=== PATIENT | female | born 1945 | race Caucasian/White ===

== ENCOUNTER 2017-02-05 08:46 | Outpatient (CLI) | payer OTHER | END 2017-02-05 08:47 | disposition home or self-care (01) | DX: E11.9 Type 2 diabetes mellitus without complications (principal); E55.9 Vitamin D deficiency, unspecified; Z79.899 Other long term (current) drug therapy ==

== ENCOUNTER 2018-02-28 08:41 | Outpatient (CLI) | payer OTHER ==
[2018-02-28 09:06] LABS: BASOPHILS # (AUTO) 0.1 10^3/uL (0.0-0.1); BASOPHILS % (AUTO) 1.1 %; EOSINOPHILS # (AUTO) 0.3 10^3/uL (0.0-0.7); HGB - HEMOGLOBIN 12.4 g/dL (12.0-16.0); LYMPHOCYTES # (AUTO) 2.2 10^3/uL (1.5-3.5); LYMPHOCYTES % (AUTO) 30.2 %; MEAN CORPUSCULAR HEMOGLOBIN 32.6 pg (27.0-31.0); MEAN CORPUSCULAR HGB CONC 33.9 g/dL (32.0-36.0); MEAN CORPUSCULAR VOLUME 96.1 fL (81.0-99.0); MEAN PLATELET VOLUME 8.2 fL (7.9-10.8); MONOCYTES # (AUTO) 0.4 10^3/uL (0.0-1.0); NEUTROPHILS # (AUTO) 4.3 10^3/uL (1.5-6.6); NEUTROPHILS % (AUTO) 58.7 %; PLT - PLATELET COUNT 295 10^3/uL (130-450); RED CELL DISTRIBUTION WIDTH 13.2 % (12.0-15.0); WHITE BLOOD COUNT 7.3 x10^3/uL (4.8-10.8)
[2018-02-28 09:23] LABS: ALBUMIN 4.2 g/dL (3.2-5.5); ALBUMIN/GLOBULIN RATIO 1.4 (1.0-2.2); ALKALINE PHOSPHATASE 78 IU/L (42-121); ALT ALANINE AMINOTRANSFERASE 103 IU/L (10-60); AST ASPARTATE AMINOTRANSFERASE 64 IU/L (10-42); BILIRUBIN,TOTAL 0.6 mg/dL (0.2-1.0); BUN - BLOOD UREA NITROGEN 19 mg/dL (6-20); CALCIUM 9.3 mg/dL (8.5-10.3); CARBON DIOXIDE - CO2 26 mmol/L (21-32); CHLORIDE 103 mmol/L (101-111); CHOL/HDL RATIO 3.4 (<4.4); CHOLESTEROL 223 mg/dL; GFR - MDRD 55 (>89); GLUCOSE 212 mg/dL (70-100); HDL CHOLESTEROL 66 mg/dL; LDL CHOLESTEROL,CALCULATED 141 mg/dL; LDL/HDL RATIO 2.1 (<4.4); SODIUM 137 mmol/L (135-145); TOTAL PROTEIN 7.1 g/dL (6.7-8.2); VLDL CHOLESTEROL 16 mg/dL
[2018-02-28 09:32] LABS: HB2 TOTAL 13.4 g/dL; HEMOGLOBIN A1C 0.98 g/dL; HEMOGLOBIN A1C % 8.8 % (4.6-6.2)
[2018-03-01 14:12] LABS: HEPATITIS C ANTIBODY NON-REACTIVE (NON-REACTIVE)
== END 2018-02-28 08:42 | disposition home or self-care (01) ==
LOC: LAB 08:41
PROVIDERS: ATTEND Physician Assistant Medical
DX: E55.9 Vitamin D deficiency, unspecified (principal); E11.9 Type 2 diabetes mellitus without complications; E78.5 Hyperlipidemia, unspecified; M85.80 Other specified disorders of bone density and structure, unspecified site; Z11.59 Encounter for screening for other viral diseases; Z72.89 Other problems related to lifestyle; Z79.899 Other long term (current) drug therapy
CPT/HCPCS: 36415; 80053; 80061; 82306; 83036; 83721; 84443; 85025; 86803

== ENCOUNTER 2018-08-07 10:32 | Outpatient (CLI) | payer OTHER ==
[2018-08-07 11:15] LABS: ALBUMIN 4.2 g/dL (3.2-5.5); BILIRUBIN,DIRECT 0.1 mg/dL (0.1-0.5); BILIRUBIN,TOTAL 0.8 mg/dL (0.2-1.0); TOTAL PROTEIN 7.3 g/dL (6.7-8.2)
[2018-08-07] MEDS ORDERED: IOPAMIDOL-300 100 ML VIAL ONE (11:25)
[2018-08-07 11:38] LABS: HB2 TOTAL 14.1 g/dL; HEMOGLOBIN A1C 1.14 g/dL; HEMOGLOBIN A1C % 9.5 % (4.6-6.2)
[2018-08-07] MEDS ORDERED: IOPAMIDOL-300 100 ML VIAL IVP ONE (12:54)
--- NOTE | 2018-08-07 16:44 | CT Report ---
Reason: ASCENDING AORTIC ANEURYSM. Procedure Date: 08/07/2018 Accession Number: [id number] / [id number] Procedure: CT - Chest Angio (AORTA) CPT Code: FULL RESULT: EXAM: CT ANGIOGRAM CHEST, ABDOMEN AND PELVIS EXAM DATE: 08/07/2018 12:51 PM. CLINICAL HISTORY: Ascending aortic aneurysm. COMPARISONS: Chest angiogram (aorta) 07/27/2016 10:12 AM. TECHNIQUE: Routine axial helical CT angiographic imaging was performed through the chest, abdomen, and pelvis. IV Contrast: CE. Reconstructions: Coronal, sagittal, and 3D MIP reconstructions of the aorta. In accordance with CT protocol optimization, one or more of the following dose reduction techniques were utilized for this exam: automated exposure control, adjustment of mA and/or KV based on patient size, or use of iterative reconstructive technique. FINDINGS: Vascular Structures: The previously identified ascending aortic aneurysm above the sinuses of Valsalva is stable at up to 4.1 cm. No dissection, or significant atherosclerotic disease of the thoracic aorta, abdominal aorta, or iliac arteries. The visualized pulmonary, mesenteric, and solid organ vascular structures are also within normal limits. Lungs/Pleura: Dependent changes are seen posteriorly in the right lung. No lobar consolidation, nodules, or edema. No effusions or pneumothorax. Mediastinum: Impression of mild four-chamber cardiomegaly, evaluation limited by non-gated technique. This is unchanged compared to 2016. Bones: No aggressive osseous lesions. Other: None. IMPRESSION: Stable ascending aortic aneurysm. RADIA
== END 2018-08-07 10:33 | disposition home or self-care (01) ==
LOC: DI 10:32
PROVIDERS: ATTEND Physician Assistant Medical
DX: I71.2 Thoracic aortic aneurysm, without rupture (principal); E11.9 Type 2 diabetes mellitus without complications; R94.5 Abnormal results of liver function studies
CPT/HCPCS: 36415; 71275; 80076; 82565; 82947; 83036; 93306; Q9967

== ENCOUNTER 2018-09-18 11:59 | Outpatient (CLI) | payer OTHER ==
--- NOTE | 2018-09-18 14:55 | XRAY Report ---
Reason: JAW PAIN,TMJ TENDERNESS,LEFT Procedure Date: 09/18/2018 Accession Number: [id number] / [id number] Procedure: XR - Mandible Bilat CPT Code: FULL RESULT: EXAM: MANDIBLE RADIOGRAPHY EXAM DATE: 09/18/2018 12:33 PM. HISTORY: Jaw pain, TMJ tenderness, left. COMPARISONS: None. TECHNIQUE: 4 views. FINDINGS: Bones: No fracture or lytic lesion of the mandible is detected. Temporomandibular Joints: Normal. The temporomandibular joints are normally located and symmetric. Sinuses: Normal. No opacities or fluid levels. Other: Normal. No soft tissue swelling. IMPRESSION: Normal mandible radiography. RADIA
== END 2018-09-18 12:00 | disposition home or self-care (01) ==
LOC: DI 11:59
PROVIDERS: ATTEND Physician Assistant Medical
DX: R68.84 Jaw pain (principal); M26.69 Other specified disorders of temporomandibular joint
CPT/HCPCS: 70110

== ENCOUNTER 2018-10-23 14:35 | Outpatient (CLI) | payer OTHER ==
--- NOTE | 2018-10-24 12:04 | CARDIAC PROCEDURE NOTE ---
DATE OF SERVICE: 10/23/2018 Physician: Kelli Vázquez MD, [facility] INDICATION: Chest pain. CARDIAC RISK FACTORS 1. Postmenopausal status. 2. Hyperlipidemia. 3. Diabetes. 4. Hypertension. 5. Unknown if family had heart disease. SUMMARY: After signing informed consent, the patient underwent a Navjot protocol treadmill stress test with Echo imaging. Resting heart rate: 66. Peak heart rate: 129 (87% predicted maximal heart rate for age). Resting blood pressure: 140/60. Peak blood pressure: 178/62. The patient exercised for 6 minutes and 13 seconds on a Navjot protocol treadmill stress test. She achieved a peak heart rate of 129 (87% PMHR), 7.4 METS. The patient developed moderate shortness of breath at peak, she had no chest pain. RESTING EKG: Normal sinus rhythm, left atrial enlargement, early RS transition. Peak EK mm horizontal ST depression in leads II, III and aVF and upsloping ST depressions in V5 through V6. SUMMARY 1. Fair exercise tolerance. 2. Ischemic changes by EKG criteria on this Navjot protocol treadmill stress test. 3. Echo images reported separately. cc: Leta Hurt PA-C TD: 10/24/2018 11:48 MTDD
== END 2018-10-23 14:36 | disposition home or self-care (01) ==
LOC: DI 14:35
PROVIDERS: ATTEND Physician Assistant Medical
DX: R07.89 Other chest pain (principal); I10 Essential (primary) hypertension; E66.3 Overweight; I71.2 Thoracic aortic aneurysm, without rupture; E11.9 Type 2 diabetes mellitus without complications; I51.7 Cardiomegaly
CPT/HCPCS: 93351

== ENCOUNTER 2019-05-08 07:58 | Outpatient (CLI) | payer OTHER | END 2019-05-08 07:59 | disposition home or self-care (01) | LOC: DI 07:58 | PROVIDERS: ATTEND Nurse Practitioner | DX: I71.2 Thoracic aortic aneurysm, without rupture (principal); I35.1 Nonrheumatic aortic (valve) insufficiency; F10.10 Alcohol abuse, uncomplicated; F41.8 Other specified anxiety disorders; E11.65 Type 2 diabetes mellitus with hyperglycemia; Z79.899 Other long term (current) drug therapy; E55.9 Vitamin D deficiency, unspecified; I10 Essential (primary) hypertension; E78.5 Hyperlipidemia, unspecified | CPT/HCPCS: 80053; 80061; 82043; 82570; 83036; 84443; 85025; 93306 ==

== ENCOUNTER 2019-05-08 08:45 | Outpatient (CLI) | payer OTHER ==
[2019-05-08 09:12] LABS: BASOPHILS # (AUTO) 0.1 10^3/uL (0.0-0.1); BASOPHILS % (AUTO) 1.4 %; EOSINOPHILS # (AUTO) 0.3 10^3/uL (0.0-0.7); EOSINOPHILS % (AUTO) 3.8 %; LYMPHOCYTES # (AUTO) 2.2 10^3/uL (1.5-3.5); LYMPHOCYTES % (AUTO) 32.8 %; MEAN CORPUSCULAR HEMOGLOBIN 32.4 pg (27.0-31.0); MEAN CORPUSCULAR HGB CONC 33.1 g/dL (32.0-36.0); MEAN PLATELET VOLUME 10.2 fL (7.9-10.8); MONOCYTES # (AUTO) 0.5 10^3/uL (0.0-1.0); MONOCYTES % (AUTO) 7.8 %; NEUTROPHILS # (AUTO) 3.5 10^3/uL (1.5-6.6); NEUTROPHILS % (AUTO) 53.4 %; PLT - PLATELET COUNT 326 10^3/uL (130-450); RED BLOOD COUNT 4.01 10^6/uL (4.20-5.40); RED CELL DISTRIBUTION WIDTH 12.4 % (12.0-15.0); WHITE BLOOD COUNT 6.6 x10^3/uL (4.8-10.8)
[2019-05-08 09:26] LABS: CREATININE,URINE 91.2 mg/dL; MICROALBUM/CREATININE RATIO,UR 12.1 ug/mg (<30.0); MICROALBUMIN,URINE 1.1 mg/dL (0-300.0)
[2019-05-08 09:35] LABS: ALBUMIN 4.1 g/dL (3.2-5.5); ALBUMIN/GLOBULIN RATIO 1.2 (1.0-2.2); ALKALINE PHOSPHATASE 81 IU/L (42-121); ALT ALANINE AMINOTRANSFERASE 95 IU/L (10-60); AST ASPARTATE AMINOTRANSFERASE 54 IU/L (10-42); BILIRUBIN,TOTAL 0.9 mg/dL (0.2-1.0); BUN - BLOOD UREA NITROGEN 15 mg/dL (6-20); CALCIUM 9.5 mg/dL (8.5-10.3); CARBON DIOXIDE - CO2 25 mmol/L (21-32); CHLORIDE 103 mmol/L (101-111); CHOL/HDL RATIO 2.7 (<4.4); CHOLESTEROL 172 mg/dL; CREATININE 1.1 mg/dL (0.4-1.0); GFR - MDRD 49 (>89); GLUCOSE 252 mg/dL (70-100); HDL CHOLESTEROL 64 mg/dL; LDL CHOLESTEROL,CALCULATED 91 mg/dL; LDL/HDL RATIO 1.4 (<4.4); SODIUM 140 mmol/L (135-145); TOTAL PROTEIN 7.4 g/dL (6.7-8.2); VLDL CHOLESTEROL 17 mg/dL
[2019-05-08 09:46] LABS: HB2 TOTAL 13.4 g/dL; HEMOGLOBIN A1C 1.28 g/dL; HEMOGLOBIN A1C % 10.9 % (4.6-6.2)
== END 2019-05-08 08:46 | disposition home or self-care (01) ==
LOC: LAB 08:45
PROVIDERS: ATTEND Nurse Practitioner
DX: F10.10 Alcohol abuse, uncomplicated (principal); F41.8 Other specified anxiety disorders; E11.65 Type 2 diabetes mellitus with hyperglycemia; Z79.899 Other long term (current) drug therapy; E55.9 Vitamin D deficiency, unspecified; I10 Essential (primary) hypertension; E78.5 Hyperlipidemia, unspecified
CPT/HCPCS: 80053; 80061; 82043; 82570; 83036; 83721; 84443; 85025

== ENCOUNTER 2020-08-19 10:57 | Outpatient (CLI) | payer MEDICARE ==
[2020-08-19 12:07] LABS: ALBUMIN 4.1 g/dL (3.2-5.5); ALBUMIN/GLOBULIN RATIO 1.5 (1.0-2.2); BILIRUBIN,TOTAL 0.6 mg/dL (0.2-1.0); TOTAL PROTEIN 6.9 g/dL (6.7-8.2)
[2020-08-19 12:21] LABS: CREATININE,URINE 84.3 mg/dL; MICROALBUM/CREATININE RATIO,UR 2.4 ug/mg (<30.0); MICROALBUMIN,URINE 0.2 mg/dL (0-300.0)
[2020-08-19 19:56] LABS: HEMOGLOBIN A1c% 7.5 % (4.27-6.07)
== END 2020-08-19 10:58 | disposition home or self-care (01) ==
LOC: LAB 10:57
PROVIDERS: ATTEND Nurse Practitioner
DX: E11.65 Type 2 diabetes mellitus with hyperglycemia (principal); Z79.899 Other long term (current) drug therapy; I10 Essential (primary) hypertension; R94.5 Abnormal results of liver function studies
CPT/HCPCS: 36415; 80053; 82043; 82570; 83036

== ENCOUNTER 2020-10-16 14:56 | Emergency (ER) | payer MEDICARE, OTHER ==
[2020-10-16] MEDS ORDERED: ASPIRIN 325 MG TABLET PO STA (15:17)
--- NOTE | 2020-10-16 15:19 | ED Physician Documentation ---
PD HPI LOWER EXT INJURY - Stated complaint Stated Complaint: L FOOT PAIN - Chief complaint Chief Complaint: Trauma Ext - History obtained from History obtained from: Patient - Additional information Additional information: States she stubbed her toe and has persistent pain at the area of the distal Left fourth metatarsal. Hurts to put on shoes or walk. Minimal pain at rest. Review of Systems Constitutional: reports: Reviewed and negative Eyes: reports: Reviewed and negative Ears: reports: Reviewed and negative Nose: reports: Reviewed and negative Throat: reports: Reviewed and negative PD PAST MEDICAL HISTORY - Past Medical History Past Medical History: Yes Cardiovascular: Hypertension, High cholesterol, Murmur Respiratory: None Endocrine/Autoimmune: Type 2 diabetes GI: GERD, Ulcers : None HEENT: Glaucoma Psych: Depression Musculoskeletal: None Derm: None - Past Surgical History Past Surgical History: No HEENT: Tonsil/Adenoidectomy - Present Medications Home Medications: Ambulatory Orders Medication Instructions Recorded Confirmed Aspirin [Aspir 81] 81 mg PO DAILY 08/24/13 08/19/19 Losartan [Cozaar] 50 mg PO ONCE 08/24/13 08/19/19 Pantoprazole Sodium 40 mg PO DAILY 08/24/13 08/19/19 Escitalopram [Lexapro] 10 mg PO DAILY 08/16/16 08/19/19 Glimepiride 1 mg PO BID 08/16/16 08/19/19 Metformin HCl [Glucophage] 1,000 mg PO DAILY 08/16/16 08/19/19 Pravastatin Sodium 40 mg PO DAILY 08/16/16 08/19/19 Cholecalciferol [Vitamin D3] 5,000 unit PO DAILY 08/19/19 08/19/19 Doxylamine Succinate [Nighttime 25 mg PO DAILY 08/19/19 08/19/19 Sleep-Aid] Fexofenadine HCl 180 mg PO DAILY 08/19/19 08/19/19 - Allergies Allergies/Adverse Reactions: Allergies Allergy/AdvReac Type Severity Reaction Status Date / Time Sulfa (Sulfonamide Allergy Intermediate Itching Verified 08/24/13 15:22 Antibiotics) - Social History Does the pt smoke?: No Smoking Status: Never smoker Does the pt drink ETOH?: Yes PD ED PE NORMAL - Vitals Vital signs reviewed: Yes - General General: Alert and oriented X 3, No acute distress - Extremities Extremities: Other (There is bruising over the dorsal distal foot kind of laterally and tender to the distal fourth metatarsal and some pain with manipulation of the fourth digit. No distal neurovascular compromise.) - Neuro Neuro: Alert and oriented X 3, Normal speech Results - Vitals Vitals: Vital Signs - 24 hr 10/16/20 15:00 Temperature 36.6 C Heart Rate 79 Respiratory 18 Rate Blood Pressure 143/52 H O2 Saturation 97 Oxygen O2 Source Room air Departure - Departure Disposition: Home, Self Care Clinical Impression: Toe sprain Qualifiers: Encounter type: initial encounter Qualified Code(s): S93.509A - Unspecified sprain of unspecified toe(s), initial encounter Foot contusion Qualifiers: Encounter type: initial encounter Laterality: left Qualified Code(s): S90.32XA - Contusion of left foot, initial encounter Condition: Good Record reviewed to determine appropriate education?: Yes Instructions: ED Sprain Foot Comments: No fracture on the x-ray, take Tylenol or aspirin as needed for the pain. Elevate and ice as needed. Return for new or worsening symptoms. Recheck with your doctor in a week or 2 if not improving.
--- NOTE | 2020-10-16 15:40 | XRAY Report ---
PROCEDURE: Foot 3 View LT INDICATIONS: foot inj TECHNIQUE: 3 views of the foot were acquired. COMPARISON: None FINDINGS: Bones: No fractures or dislocations. No suspicious bony lesions. Age-appropriate degenerative baird ges are seen. Soft tissues: No tibiotalar joint effusion. Achilles tendon appears normal. IMPRESSION: No displaced fractures are seen on this plain study. In this patient with a given history of trauma, please correlate with focal tenderness. If clinically appropriate, please consider a short-term follow-up plain films series versus a dedicated CT study. Reviewed by: Ramses Zavala MD on 10/16/2020 2:39 PM [facility] Approved by: Ramses Zavala MD on 10/16/2020 2:39 PM [facility] Station ID: [id number]
[2020-10-16 15:55] VITALS: BP 142/66
== END 2020-10-16 15:55 | disposition home or self-care (01) ==
LOC: ED 14:56
DX: S93.505A Unspecified sprain of left lesser toe(s), initial encounter (principal); S90.32XA Contusion of left foot, initial encounter; W22.03XA Walked into furniture, initial encounter; I10 Essential (primary) hypertension; E11.9 Type 2 diabetes mellitus without complications; Z79.82 Long term (current) use of aspirin; Z79.84 Long term (current) use of oral hypoglycemic drugs
CPT/HCPCS: 73630; 99282; 99283; A9270

== ENCOUNTER 2021-05-25 09:35 | Outpatient (CLI) | payer MEDICARE, OTHER ==
[2021-05-25 10:01] LABS: BASOPHILS # (AUTO) 0.1 10^3/uL (0.0-0.1); EOSINOPHILS # (AUTO) 0.3 10^3/uL (0.0-0.7); EOSINOPHILS % (AUTO) 3.4 %; HCT - HEMATOCRIT 37.3 % (37.0-47.0); HGB - HEMOGLOBIN 12.1 g/dL (12.0-16.0); LYMPHOCYTES # (AUTO) 2.4 10^3/uL (1.5-3.5); LYMPHOCYTES % (AUTO) 30.1 %; MEAN CORPUSCULAR HEMOGLOBIN 31.9 pg (27.0-31.0); MEAN CORPUSCULAR HGB CONC 32.4 g/dL (32.0-36.0); MEAN CORPUSCULAR VOLUME 98.4 fL (81.0-99.0); MEAN PLATELET VOLUME 9.8 fL (7.9-10.8); MONOCYTES # (AUTO) 0.5 10^3/uL (0.0-1.0); MONOCYTES % (AUTO) 6.1 %; NEUTROPHILS # (AUTO) 4.6 10^3/uL (1.5-6.6); PLT - PLATELET COUNT 372 10^3/uL (130-450); RED BLOOD COUNT 3.79 10^6/uL (4.20-5.40); RED CELL DISTRIBUTION WIDTH 13.3 % (12.0-15.0); WHITE BLOOD COUNT 7.8 x10^3/uL (4.8-10.8)
[2021-05-25 10:16] LABS: ALBUMIN 4.5 g/dL (3.2-5.5); ALBUMIN/GLOBULIN RATIO 1.5 (1.0-2.2); ALKALINE PHOSPHATASE 71 IU/L (42-121); ALT ALANINE AMINOTRANSFERASE 65 IU/L (10-60); AST ASPARTATE AMINOTRANSFERASE 45 IU/L (10-42); BILIRUBIN,TOTAL 0.6 mg/dL (0.2-1.0); BUN - BLOOD UREA NITROGEN 19 mg/dL (6-20); CALCIUM 9.8 mg/dL (8.5-10.3); CARBON DIOXIDE - CO2 26 mmol/L (21-32); CHLORIDE 104 mmol/L (101-111); CHOL/HDL RATIO 2.3 (<4.4); CHOLESTEROL 181 mg/dL; CREATININE 1.2 mg/dL (0.4-1.0); GFR - MDRD 44 (>89); GLUCOSE 202 mg/dL (70-100); HDL CHOLESTEROL 78 mg/dL; LDL CHOLESTEROL,CALCULATED 86 mg/dL; LDL/HDL RATIO 1.1 (<4.4); POTASSIUM 4.3 mmol/L (3.5-5.0); SODIUM 141 mmol/L (135-145); TOTAL PROTEIN 7.5 g/dL (6.7-8.2); TRIGLYCERIDES 87 mg/dL; VLDL CHOLESTEROL 17 mg/dL
[2021-05-25 10:18] LABS: CREATININE,URINE 60.7 mg/dL; MICROALBUM/CREATININE RATIO,UR 3.3 ug/mg (<30.0); MICROALBUMIN,URINE 0.2 mg/dL (0-300.0)
[2021-05-25 10:29] LABS: THYROID STIMULATING HORMONE 2.59 uIU/mL (0.34-5.60)
[2021-05-25 11:49] LABS: ESTIMATED AVERAGE GLUCOSE 186 mg/dL (70-100); HEMOGLOBIN A1c% 8.1 % (4.27-6.07)
== END 2021-05-25 09:36 | disposition home or self-care (01) ==
LOC: LAB 09:35
PROVIDERS: ATTEND Family Medicine
DX: E11.8 Type 2 diabetes mellitus with unspecified complications (principal)
CPT/HCPCS: 36415; 80053; 80061; 82043; 82570; 83036; 83721; 84443; 85025

== ENCOUNTER 2021-10-12 08:00 | Outpatient (CLI) | payer MEDICARE, OTHER ==
[2021-10-12 12:21] LABS: BASOPHILS # (AUTO) 0.1 10^3/uL (0.0-0.1); EOSINOPHILS # (AUTO) 0.3 10^3/uL (0.0-0.7); HCT - HEMATOCRIT 39.3 % (37.0-47.0); HGB - HEMOGLOBIN 12.5 g/dL (12.0-16.0); LYMPHOCYTES # (AUTO) 2.9 10^3/uL (1.5-3.5); LYMPHOCYTES % (AUTO) 37.5 %; MEAN CORPUSCULAR HEMOGLOBIN 31.6 pg (27.0-31.0); MEAN CORPUSCULAR HGB CONC 31.8 g/dL (32.0-36.0); MEAN CORPUSCULAR VOLUME 99.5 fL (81.0-99.0); MEAN PLATELET VOLUME 10.7 fL (7.9-10.8); MONOCYTES # (AUTO) 0.5 10^3/uL (0.0-1.0); MONOCYTES % (AUTO) 6.4 %; NEUTROPHILS # (AUTO) 3.9 10^3/uL (1.5-6.6); NEUTROPHILS % (AUTO) 50.7 %; PLT - PLATELET COUNT 375 10^3/uL (130-450); RED BLOOD COUNT 3.95 10^6/uL (4.20-5.40); RED CELL DISTRIBUTION WIDTH 13.1 % (12.0-15.0); WHITE BLOOD COUNT 7.7 x10^3/uL (4.8-10.8)
[2021-10-12 12:47] LABS: ALBUMIN 4.3 g/dL (3.2-5.5); ALBUMIN/GLOBULIN RATIO 1.4 (1.0-2.2); ALKALINE PHOSPHATASE 61 IU/L (42-121); ALT ALANINE AMINOTRANSFERASE 53 IU/L (10-60); AST ASPARTATE AMINOTRANSFERASE 34 IU/L (10-42); BUN - BLOOD UREA NITROGEN 17 mg/dL (6-20); CALCIUM 9.7 mg/dL (8.5-10.3); CARBON DIOXIDE - CO2 25 mmol/L (21-32); CHLORIDE 104 mmol/L (101-111); CHOL/HDL RATIO 2.3 (<4.4); CHOLESTEROL 175 mg/dL; CREATININE 0.9 mg/dL (0.4-1.0); ESTIMATED AVERAGE GLUCOSE 200 mg/dL (70-100); GFR - MDRD 61 (>89); GLUCOSE 173 mg/dL (70-100); HDL CHOLESTEROL 76 mg/dL; HEMOGLOBIN A1c% 8.6 % (4.27-6.07); LDL CHOLESTEROL,CALCULATED 79 mg/dL; MAGNESIUM 1.8 mg/dL (1.7-2.8); POTASSIUM 4.2 mmol/L (3.5-5.0); SODIUM 139 mmol/L (135-145); TOTAL PROTEIN 7.3 g/dL (6.7-8.2); TRIGLYCERIDES 102 mg/dL; VLDL CHOLESTEROL 20 mg/dL
== END 2021-10-12 23:59 | disposition home or self-care (01) ==
LOC: LAB.WCP 08:00
PROVIDERS: ATTEND Family Medicine
DX: E11.8 Type 2 diabetes mellitus with unspecified complications (principal)
CPT/HCPCS: 36415; 80053; 80061; 83036; 83721; 83735; 85025

== ENCOUNTER 2022-03-06 10:34 | Outpatient (CLI) | payer MEDICARE, OTHER ==
[2022-03-06 17:50] LABS: BASOPHILS # (AUTO) 0.1 10^3/uL (0.0-0.1); BASOPHILS % (AUTO) 1.2 %; EOSINOPHILS # (AUTO) 0.3 10^3/uL (0.0-0.7); EOSINOPHILS % (AUTO) 4.2 %; HCT - HEMATOCRIT 38.9 % (37.0-47.0); HGB - HEMOGLOBIN 12.8 g/dL (12.0-16.0); LYMPHOCYTES # (AUTO) 2.9 10^3/uL (1.5-3.5); LYMPHOCYTES % (AUTO) 39.5 %; MEAN CORPUSCULAR HEMOGLOBIN 32.2 pg (27.0-31.0); MEAN CORPUSCULAR HGB CONC 32.9 g/dL (32.0-36.0); MEAN PLATELET VOLUME 11.5 fL (7.9-10.8); MONOCYTES # (AUTO) 0.5 10^3/uL (0.0-1.0); MONOCYTES % (AUTO) 6.1 %; NEUTROPHILS # (AUTO) 3.6 10^3/uL (1.5-6.6); NEUTROPHILS % (AUTO) 48.6 %; PLT - PLATELET COUNT 361 10^3/uL (130-450); RED BLOOD COUNT 3.97 10^6/uL (4.20-5.40); RED CELL DISTRIBUTION WIDTH 12.7 % (12.0-15.0); WHITE BLOOD COUNT 7.4 x10^3/uL (4.8-10.8)
[2022-03-06 18:12] LABS: CREATININE,URINE 69.8 mg/dL; MICROALBUM/CREATININE RATIO,UR 11.5 ug/mg (<30.0); MICROALBUMIN,URINE 0.8 mg/dL (0-300.0)
[2022-03-06 19:03] LABS: ALBUMIN 4.1 g/dL (3.2-5.5); ALBUMIN/GLOBULIN RATIO 1.3 (1.0-2.2); ALKALINE PHOSPHATASE 62 IU/L (42-121); ALT ALANINE AMINOTRANSFERASE 82 IU/L (10-60); AST ASPARTATE AMINOTRANSFERASE 44 IU/L (10-42); BILIRUBIN,TOTAL 0.8 mg/dL (0.2-1.0); BUN - BLOOD UREA NITROGEN 18 mg/dL (6-20); CALCIUM 9.7 mg/dL (8.5-10.3); CARBON DIOXIDE - CO2 26 mmol/L (21-32); CHLORIDE 103 mmol/L (101-111); CHOL/HDL RATIO 2.6 (<4.4); CHOLESTEROL 184 mg/dL; GFR - MDRD 54 (>89); GLUCOSE 301 mg/dL (70-100); HDL CHOLESTEROL 72 mg/dL; LDL CHOLESTEROL,CALCULATED 90 mg/dL; LDL/HDL RATIO 1.3 (<4.4); POTASSIUM 4.6 mmol/L (3.5-5.0); SODIUM 137 mmol/L (135-145); TOTAL PROTEIN 7.2 g/dL (6.7-8.2); TRIGLYCERIDES 110 mg/dL; VLDL CHOLESTEROL 22 mg/dL
[2022-03-06 20:32] LABS: ESTIMATED AVERAGE GLUCOSE 223 mg/dL (70-100); HEMOGLOBIN A1c% 9.4 % (4.27-6.07)
== END 2022-03-06 10:35 | disposition home or self-care (01) ==
LOC: LAB.N 10:34
PROVIDERS: ATTEND Family Medicine
DX: E11.8 Type 2 diabetes mellitus with unspecified complications (principal)
CPT/HCPCS: 36415; 80053; 80061; 82043; 82570; 83036; 83721; 85025

== ENCOUNTER 2022-03-20 12:28 | Emergency (ER) | payer MEDICARE, OTHER ==
[2022-03-20 12:39] VITALS: BP 163/82
--- NOTE | 2022-03-20 13:21 | ED Physician Documentation ---
PD HPI UPPER EXT INJURY - Stated complaint Stated Complaint: R HAND NUMBNESS - Chief complaint Chief Complaint: Trauma Ext - History obtained from History obtained from: Patient - History of Present Illness Location: Right, Arm, Wrist Type of injury: Fall (she states she was getting up from bed, lost balance and fell toward wall. She slid and her bent elbow/arm got wedged between wall and footboard of bed in tight area. Her arm was wedged and she had to pull wrist/arm up with other hand to unwedge it. 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 Denies edema/discoloration of hand/fingers. Has tenderness/ecchymosis medial biceps/arm area. Did not strike head.), Numbness (mainly thumb and index finger.), Discolored (eccymosis purple in medial arm. No discoloration at wrist.). No: Swelling Contributing factors: No: Anticoagulated Similar symptoms before: Has not had sx before Recently seen: Not recently seen Review of Systems Skin: reports: Abrasion (s) (left eyebrow area) Musculoskeletal: denies: Neck pain, Back pain Neurologic: reports: Focal weakness (right wrist), Head injury (abrasion left eyebrow area but states was rubbed against wall and not impact per se.). denies: Difficulty speaking, Headache PD PAST MEDICAL HISTORY - Past Medical History Cardiovascular: Hypertension, High cholesterol, Murmur Respiratory: None Endocrine/Autoimmune: Type 2 diabetes GI: GERD, Ulcers : None HEENT: Glaucoma Psych: Depression Musculoskeletal: None Derm: None - Past Surgical History Past Surgical History: No HEENT: Tonsil/Adenoidectomy - Present Medications Home Medications: Ambulatory Orders Medication Instructions Recorded Confirmed Aspirin [Aspir 81] 81 mg PO DAILY 08/24/13 08/19/19 Losartan [Cozaar] 50 mg PO ONCE 08/24/13 08/19/19 Pantoprazole Sodium 40 mg PO DAILY 08/24/13 08/19/19 Escitalopram [Lexapro] 10 mg PO DAILY 08/16/16 08/19/19 Glimepiride 1 mg PO BID 08/16/16 08/19/19 Metformin HCl [Glucophage] 1,000 mg PO DAILY 08/16/16 08/19/19 Pravastatin Sodium 40 mg PO DAILY 08/16/16 08/19/19 Cholecalciferol [Vitamin D3] 5,000 unit PO DAILY 08/19/19 08/19/19 Doxylamine Succinate [Nighttime 25 mg PO DAILY 08/19/19 08/19/19 Sleep-Aid] Fexofenadine HCl 180 mg PO DAILY 08/19/19 08/19/19 - Allergies Allergies/Adverse Reactions: Allergies Allergy/AdvReac Type Severity Reaction Status Date / Time Sulfa (Sulfonamide Allergy Intermediate Itching Verified 03/20/22 12:39 Antibiotics) - Social History Does the pt smoke?: No Smoking Status: Never smoker Does the pt drink ETOH?: Yes PD ED PE NORMAL - Vitals Vital signs reviewed: Yes - General General: Alert and oriented X 3, No acute distress, Well developed/nourished - HEENT HEENT: PERRL, EOMI, Other (scalp not tender. Has abrasion lateral eyebrow area left. ) - Neck Neck: Supple, no meningeal sign, No bony TTP - Cardiac Cardiac: RRR, No murmur - Respiratory Respiratory: Clear bilaterally, Other (no chestwall tenderness. ) - Derm Derm: Normal color, Warm and dry, Other (good color and cap refill in fingers right hand. ) - Neuro Neuro: Other (completely weak for wrist extension and fingers extension. mostly weak for flexion as well. Able to flex and extend at elbow well, abduction upper arm, and supinate forearm. purple ecchymosis medial biceps area, but muscle itself is strong for flexion elbow. ). No: No sensory deficit (less sensation to touch right thumb/index fingers. Good color in nailbeds. Good wrist puilses. ) Results - Vitals Vitals: Vital Signs - 24 hr 03/20/22 12:32 Temperature 36.2 C L Heart Rate 79 Respiratory 14 Rate Blood Pressure 163/82 H O2 Saturation 97 Oxygen O2 Source Room air - Rads (name of study) humerus and forearm Radiology: Prelim report reviewed (no acute findings. ), See rad report PD MEDICAL DECISION MAKING - ED course Complexity details: reviewed results, considered differential (seems likely radial nerve palsy from injury medial arm. Will give wrist spling and sling to support and have her f/u with Ortho. ), d/w patient Departure - Departure Disposition: 01 Home, Self Care Clinical Impression: Elevated blood sugar Fall from slip, trip, or stumble Qualifiers: Encounter type: initial encounter Qualified Code(s): W01.0XXA - Fall on same level from slipping, tripping and stumbling without subsequent striking against object, initial encounter Contusion, upper arm Qualifiers: Encounter type: initial encounter Laterality: right Qualified Code(s): S40.021A - Contusion of right upper arm, initial encounter Acute radial nerve palsy Qualifiers: Laterality: right Qualified Code(s): G56.31 - Lesion of radial nerve, right upper limb Condition: Stable Record reviewed to determine appropriate education?: Yes Instructions: ED Drop Wrist Follow-Up: Lilibeth Main DO [Primary Care Provider] - Sam Simms MD [Provider Admit Priv/Credential] - Comments: Your x-ray does not show any obvious fractures. The area of bruising and injury can put pressure on the radial nerve and cause the weakness at the wrist. Use the wrist splint to support the wrist and the sling to help support the arm so there is less irritation on the bruised muscles. I would anticipate improvement in the wrist strength as the bruising resolves over the next several days to week or so. Follow-up with your primary care or orthopedics if not improving in that timeframe. Your blood sugar is elevated in the 300s. Follow-up with your primary care regarding likely starting of daily long-acting insulin since you are already on relatively good doses of oral diabetes medicines. I would defer that to your primary care for decision. Discharge Date/Time: 03/20/22 15:04
--- NOTE | 2022-03-20 15:36 | XRAY Report ---
PROCEDURE: Humerus RT INDICATIONS: fall with upper arm injury/bruise TECHNIQUE: 2 views of the right humerus were acquired. COMPARISON: None FINDINGS: Bones: No fractures or dislocations. No suspicious bony lesions. Soft tissues: No suspicious soft tissue calcifications. IMPRESSION: No acute finding. Reviewed by: Ran Edgar MD on 03/20/2022 3:35 PM PDT Approved by: Ran Edgar MD on 03/20/2022 3:35 PM PDT Station ID: [id number]
--- NOTE | 2022-03-20 15:36 | XRAY Report ---
PROCEDURE: Forearm RT INDICATIONS: fall with forearm/wrist pain-weak TECHNIQUE: 2 views of the forearm were acquired. COMPARISON: None FINDINGS: Bones: No fractures or dislocations. No suspicious bony lesions. Soft tissues: No suspicious soft tissue calcifications or masses. IMPRESSION: No acute finding. Reviewed by: Ran Edgar MD on 03/20/2022 3:35 PM PDT Approved by: Ran Edgar MD on 03/20/2022 3:35 PM PDT Station ID: [id number]
== END 2022-03-20 15:04 | disposition home or self-care (01) ==
LOC: ED 12:28
DX: S00.212A Abrasion of left eyelid and periocular area, initial encounter (principal); S40.021A Contusion of right upper arm, initial encounter; G56.31 Lesion of radial nerve, right upper limb; E11.65 Type 2 diabetes mellitus with hyperglycemia; Z79.84 Long term (current) use of oral hypoglycemic drugs; W06.XXXA Fall from bed, initial encounter; Y93.89 Activity, other specified; Y92.003 Bedroom of unspecified non-institutional (private) residence as the place of occurrence of the external cause
CPT/HCPCS: 99282; 99283

== ENCOUNTER 2022-04-03 09:15 | Outpatient (CLI) | payer MEDICARE, OTHER ==
--- NOTE | 2022-04-03 14:59 | XRAY Report ---
PROCEDURE: Hand 3 View RT INDICATIONS: HAND PAIN TECHNIQUE: 3 views of the hand(s) acquired. COMPARISON: None FINDINGS: Bones: No fractures or dislocations. Osteoarthritic changes are noted throughout right hand and wris t joints more prominent involving second through fourth the AP joints. No gross bony erosive changes are seen. No suspicious bony lesions. Soft tissues: No suspicious soft tissue calcifications. 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 No fracture or dislocation. No gross bony erosive changes. Reviewed by: German Sanchez MD on 04/03/2022 2:58 PM PDT Approved by: German Sanchez MD on 04/03/2022 2:58 PM PDT Station ID: [id number]
--- NOTE | 2022-04-03 15:07 | XRAY Report ---
PROCEDURE: Wrist 4 View RT INDICATIONS: WRIST PAIN TECHNIQUE: 4 views of the wrist were acquired. COMPARISON: None FINDINGS: Bones: No fractures or dislocations. Mild to moderate osteoarthritic changes along radial aspect of right wrist are seen more prominent at first CMC joint. No suspicious bony lesions. Scaphoid view: Scaphoid is intact. Soft tissues: No suspicious soft tissue calcifications. IMPRESSION: Osteoarthritis along radial aspect of right wrist as above. No fracture or dislocation. No gross bony erosive changes. Reviewed by: German Sanchez MD on 04/03/2022 3:05 PM PDT Approved by: German Sanchez MD on 04/03/2022 3:05 PM PDT Station ID: [id number]
--- NOTE | 2022-04-03 17:21 | XRAY Report ---
PROCEDURE: Elbow 3 View RT INDICATIONS: ELBOW PX TECHNIQUE: 3 views of the elbow were acquired. COMPARISON: None FINDINGS: Bones: No fractures or dislocations. No suspicious bony lesions. Soft tissues: No elbow joint effusion. No suspicious soft tissue calcifications. IMPRESSION: No visualized fracture. If concern persists, CT or MRI is recommended. Reviewed by: Rachel Barnett MD on 04/03/2022 5:20 PM PDT Approved by: Rachel Barnett MD on 04/03/2022 5:20 PM PDT Station ID: [id number]
== END 2022-04-03 23:59 | disposition home or self-care (01) ==
LOC: DI.WOS 09:15
PROVIDERS: ATTEND Orthopaedic Surgery
DX: M21.331 Wrist drop, right wrist (principal); G83.21 Monoplegia of upper limb affecting right dominant side; M19.031 Primary osteoarthritis, right wrist; M19.041 Primary osteoarthritis, right hand

== ENCOUNTER 2022-08-02 13:37 | Outpatient (CLI) | payer MEDICARE, OTHER ==
[2022-08-02 13:55] LABS: CREATININE 1.1 mg/dL (0.4-1.0)
--- NOTE | 2022-08-02 16:55 | CT Report ---
PROCEDURE: ANGIO CHEST W/WO INDICATIONS: AAA CONTRAST: IV CONTRAST: Optiray 320 ml: 80 PO CONTRAST: *NO PO CONTRAST TECHNIQUE: After the administration of intravenous contrast, 2 mm axial images were acquired from the pulmonary apices to the posterior costophrenic angles during the arterial phase. In addition, 1 mm lung kernel and 5 mm soft tissue kernel reconstructions were performed. 3-dimensional coronal oblique maximum int ensity projection (MIP) reformats, 8 mm axial MIP, and 5 mm coronal and sagittal MPR reformats were t hen performed through the thorax. For radiation dose reduction, the following was used: automated exp osure control, adjustment of mA and/or kV according to patient size. COMPARISON: CT dated 11/24/2014 report FINDINGS: Image quality: Excellent. Lungs and pleura: Lungs are clear. No pleural effusions or pneumothorax. Central and peripheral ai rways are patent. Mediastinum: Heart size is normal, without pericardial effusion. Mild calcification of the coronary vasculature. No mediastinal or hilar adenopathy. There is mild fusiform dilatation of the ascending t horacic aorta, with a maximal short axis diameter of roughly 39 mm which is not significantly changed by report. No significant stenosis nor dissection. No central pulmonary embolus is present. Esophagu s is normal in caliber, without hiatal hernia. Bones and chest wall: No suspicious bony lesions. Ribs and thoracic spine appear intact throughout. No axillary or supraclavicular adenopathy. The thyroid is normal in size and there are no incident al findings. Abdomen: Visualized upper abdominal solid organs appear normal in the early arterial phase of enhanc ement. IMPRESSION: 1. Stable mild dilatation of the thoracic aorta. 2. Coronary artery disease. Reviewed by: Haile Dejesus MD on 08/02/2022 4:54 PM PDT Approved by: Haile Dejesus MD on 08/02/2022 4:54 PM PDT Station ID: [id number]
== END 2022-08-02 13:38 | disposition home or self-care (01) ==
LOC: LAB 13:37
PROVIDERS: ATTEND Nurse Practitioner
DX: I71.2 Thoracic aortic aneurysm, without rupture (principal); I25.10 Atherosclerotic heart disease of native coronary artery without angina pectoris
CPT/HCPCS: 36415; 71275; 82565; 93306; Q9967

== ENCOUNTER 2023-01-21 11:56 | Outpatient (CLI) | payer MEDICARE ==
[2023-01-21 20:28] LABS: ESTIMATED AVERAGE GLUCOSE 217 mg/dL (70-100); HEMOGLOBIN A1c% 9.2 % (4.27-6.07)
== END 2023-01-21 11:57 | disposition home or self-care (01) ==
LOC: LAB.N 11:56
PROVIDERS: ATTEND Nurse Practitioner
DX: E11.42 Type 2 diabetes mellitus with diabetic polyneuropathy (principal)
CPT/HCPCS: 36415; 83036

== ENCOUNTER 2023-08-15 11:13 | Outpatient (CLI) | payer MEDICARE ==
[2023-08-15 19:27] LABS: ESTIMATED AVERAGE GLUCOSE 166 mg/dL (70-100); HEMOGLOBIN A1c% 7.4 % (4.27-6.07)
== END 2023-08-15 11:14 | disposition home or self-care (01) ==
LOC: LAB.N 11:13
PROVIDERS: ATTEND Nurse Practitioner
DX: E11.42 Type 2 diabetes mellitus with diabetic polyneuropathy (principal)
CPT/HCPCS: 36415; 83036

== ENCOUNTER 2023-10-30 13:24 | Outpatient (CLI) | payer MEDICARE ==
[2023-10-30 20:59] LABS: ESTIMATED AVERAGE GLUCOSE 174 mg/dL (70-100); HEMOGLOBIN A1c% 7.7 % (4.27-6.07)
== END 2023-10-30 13:25 | disposition home or self-care (01) ==
LOC: LAB.N 13:24
PROVIDERS: ATTEND Nurse Practitioner
DX: E11.42 Type 2 diabetes mellitus with diabetic polyneuropathy (principal)
CPT/HCPCS: 36415; 83036

== ENCOUNTER 2023-11-06 13:19 | Outpatient (CLI) | payer MEDICARE ==
--- NOTE | 2023-11-07 08:26 | Mammography Report ---
BILATERAL DIGITAL SCREENING MAMMOGRAM 3D/2D: 11/06/2023 CLINICAL: Routine screening. Comparison is made to exams dated: 07/27/2016 mammogram and 09/17/2013 mammogram - [facility]. Both breasts are heterogeneously dense, which may obscure small masses (category c / 51-75% glandular tissue). There is a possible focal asymmetry in the right breast at 1 o'clock anterior depth. This is more pr ominent. No other significant masses, calcifications, or other findings are seen in either breast. IMPRESSION: INCOMPLETE: NEEDS ADDITIONAL IMAGING EVALUATION The possible focal asymmetry in the right breast is indeterminate. Additional views with possible ul trasound are recommended. Based on the Tyrer Cuzick model (a risk assessment model) the patients lifetime risk is 3.3% and her 10 year risk is 0.0%. According to the ACR, ACS, and NCCN guidelines, an annual breast MRI exam jackie g with mammogram is recommended if the patients lifetime risk is 20% or greater. This exam was interpreted at Station ID: [id number]. NOTE: For mammograms, a report in lay terms will be sent to the patient. Approximately 15% of breast malignancies will not be visualized mammographically. In the management of a palpable breast mass, a negative mammogram must not discourage biopsy of a clinically suspicious lesion. Electronically Signed By: Demetri hernandez/trevon:11/06/2023 14:56:33 ACR BI-RADS Category 0: Incomplete 3340F PARENCHYMAL PATTERN: (D) - The breast(s) demonstrate(s) heterogeneously dense fibroglandular nash wolf. BI-RADS CATEGORY: (0) - 0 Mammo and [place] [id number] Immediate follow-up LATERALITY: (R)
== END 2023-11-06 13:20 | disposition home or self-care (01) ==
LOC: DI 13:19
PROVIDERS: ATTEND Nurse Practitioner
DX: Z12.31 Encounter for screening mammogram for malignant neoplasm of breast (principal); R92.8 Other abnormal and inconclusive findings on diagnostic imaging of breast; R92.333 Mammographic heterogeneous density, bilateral breasts

== ENCOUNTER 2023-11-06 13:20 | Outpatient (CLI) | payer MEDICARE ==
--- NOTE | 2023-11-07 13:29 | DEXA Report ---
PROCEDURE: Dexa Spine and/or Hip INDICATIONS: POST MENOPAUSAL TECHNIQUE: Dual energy x-ray absorptiometry (DXA) was performed on a [employer] System. Regions measur ed are the AP Spine, femoral neck, and if needed forearm. COMPARISON: None FINDINGS: Lumbar Spine: Bone Mineral Density 1.1-3 g/cm/cm,T score -0.5. Left Femoral Neck: Bone Mineral Density 0.745 g/cm/cm, T score -2.1. Left Hip: Bone Mineral Density 0.763 g/cm/cm,T score -1.9. (T score greater or equal to -1.0: NORMAL) (T score from -1.1 to -2.4: OSTEOPENIA) (T score less than or equal to -2.5 to: OSTEOPOROSIS) Impression: By WHO criteria, this patient has low bone density (osteopenia). Patients with diagnosis of osteoporosis or osteopenia should have regular bone mineral density assess ment. For those eligible for Medicare, routine testing is allowed once every 2 years. Testing frequ ency can be increased for patients who have rapidly progressing disease or for those who are receivin g medical therapy to restore bone mass. Reviewed by: Ector Meza MD on 11/07/2023 1:27 PM PST Approved by: Ector Meza MD on 11/07/2023 1:27 PM PST Station ID: [id number]
== END 2023-11-06 13:21 | disposition home or self-care (01) ==
LOC: DI 13:20
PROVIDERS: ATTEND Nurse Practitioner
DX: M85.89 Other specified disorders of bone density and structure, multiple sites (principal)

== ENCOUNTER 2023-12-02 10:37 | Outpatient (CLI) | payer MEDICARE ==
--- NOTE | 2023-12-03 11:06 | Mammography Report ---
UNILATERAL RIGHT DIGITAL DIAGNOSTIC MAMMOGRAM 3D/2D WITH SPOT COMPRESSION: 12/02/2023 CLINICAL: Patient returns today to evaluate a focal asymmetry in the right breast. Comparison is made to exams dated: 11/06/2023 mammogram and 07/27/2016 mammogram - [facility]. The right breast is heterogeneously dense, which may obscure small masses (category c / 51-75% glandu lar tissue). The previously described possible focal asymmetry in the right breast at 12 o'clock anterior depth is not definitively seen in additional views and appears less prominent. No other significant masses or calcifications are seen in the breast. IMPRESSION: INCOMPLETE: NEEDS ADDITIONAL IMAGING EVALUATION The possible focal asymmetry in the right breast is indeterminate. An ultrasound is recommended for further evaluation and is scheduled to immediately follow this exami nation. Based on the Tyrer Cuzick model (a risk assessment model) the patient's lifetime risk is 3.3% and her 10 year risk is 0.0%. According to the ACR, ACS, and NCCN guidelines, an annual breast MRI exam jackie g with mammogram is recommended if the patients lifetime risk is 20% or greater. This exam was interpreted at Station ID: [id number]. NOTE: For mammograms, a report in lay terms will be sent to the patient. Approximately 15% of breast malignancies will not be visualized mammographically. In the management of a palpable breast mass, a negative mammogram must not discourage biopsy of a clinically suspicious lesion. Electronically Signed By: Ector Meza M.D. aty/:12/02/2023 11:23:22 ACR BI-RADS Category 0: Incomplete 3340F PARENCHYMAL PATTERN: (D) - The breast(s) demonstrate(s) heterogeneously dense fibroglandular nash wolf. BI-RADS CATEGORY: (0) - 0 Ultrasound [id number] Immediate follow-up LATERALITY: (R)
--- NOTE | 2023-12-03 11:06 | Ultrasound Report ---
LIMITED ULTRASOUND OF RIGHT BREAST: 12/02/2023 CLINICAL: Patient returns today to evaluate a focal asymmetry in the right breast. Comparison is made to exams dated: 12/02/2023 mammogram, 11/06/2023 mammogram, 07/27/2016 mammogram, 11/17/2012 mammogram, 05/15/2012 mammogram, and 05/02/2011 mammogram - [facility]. Real-time ultrasound of the right breast 12-1 o'clock region was performed. Chicas scale images of the real-time examination were reviewed. No significant abnormalities were seen sonographically in the right breast. IMPRESSION: NEGATIVE There is no sonographic evidence of malignancy. There is no abnormality seen in the right breast to correspond with the mammography finding which lik anupama represents normal fibroglandular tissue. A 1 year screening mammogram is recommended. Findings and recommendations were conveyed to the patient during today's evaluation. This exam was interpreted at Station ID: [id number]. Electronically Signed By: Ector Meza M.D. aty/:12/02/2023 12:21:49 Ultrasound BI-RADS: 1 Negative BI-RADS CATEGORY: (1) - 1 Mammogram [id number] 1 year screening LATERALITY: (B)
== END 2023-12-02 10:38 | disposition home or self-care (01) ==
LOC: DI 10:37
PROVIDERS: ATTEND Nurse Practitioner
DX: R92.8 Other abnormal and inconclusive findings on diagnostic imaging of breast (principal); R92.331 Mammographic heterogeneous density, right breast

== ENCOUNTER 2024-06-29 10:44 | Outpatient (CLI) | payer MEDICARE ==
[2024-06-29 13:59] LABS: ALBUMIN 4.1 g/dL (3.2-5.5); ALBUMIN/GLOBULIN RATIO 1.5 (1.0-2.2); ALKALINE PHOSPHATASE 47 IU/L (42-121); ALT ALANINE AMINOTRANSFERASE 15 IU/L (10-60); AST ASPARTATE AMINOTRANSFERASE 15 IU/L (10-42); BILIRUBIN,TOTAL 0.4 mg/dL (0.2-1.0); BUN - BLOOD UREA NITROGEN 26 mg/dL (6-20); CALCIUM 9.9 mg/dL (8.5-10.3); CARBON DIOXIDE - CO2 28 mmol/L (21-32); CHLORIDE 104 mmol/L (101-111); CHOL/HDL RATIO 2.6 (<4.4); CHOLESTEROL 190 mg/dL; CREATININE 1.2 mg/dL (0.6-1.3); GFR - MDRD 44 (>89); GLUCOSE 190 mg/dL (74-104); HDL CHOLESTEROL 72 mg/dL; LDL CHOLESTEROL,CALCULATED 72 mg/dL; POTASSIUM 4.3 mmol/L (3.5-4.5); SODIUM 138 mmol/L (135-145); TOTAL PROTEIN 6.8 g/dL (6.4-8.9); TRIGLYCERIDES 228 mg/dL; VLDL CHOLESTEROL 46 mg/dL
[2024-06-29 14:16] LABS: CREATININE,URINE 56.5 mg/dL
[2024-06-29 14:26] LABS: MICROALBUMIN,URINE < 0.7 mg/dL
[2024-06-29 14:41] LABS: BASOPHILS # (AUTO) 0.1 10^3/uL (0.0-0.1); BASOPHILS % (AUTO) 1.5 %; EOSINOPHILS # (AUTO) 0.3 10^3/uL (0.0-0.7); EOSINOPHILS % (AUTO) 3.1 %; HCT - HEMATOCRIT 35.6 % (37.0-47.0); HGB - HEMOGLOBIN 11.3 g/dL (12.0-16.0); LYMPHOCYTES # (AUTO) 2.9 10^3/uL (1.5-3.5); LYMPHOCYTES % (AUTO) 33.4 %; MEAN CORPUSCULAR HGB CONC 31.7 g/dL (32.0-36.0); MEAN CORPUSCULAR VOLUME 100.8 fL (81.0-99.0); MEAN PLATELET VOLUME 10.6 fL (7.9-10.8); MONOCYTES # (AUTO) 0.6 10^3/uL (0.0-1.0); MONOCYTES % (AUTO) 6.4 %; NEUTROPHILS # (AUTO) 4.8 10^3/uL (1.5-6.6); NEUTROPHILS % (AUTO) 55.3 %; PLT - PLATELET COUNT 404 10^3/uL (130-450); RED BLOOD COUNT 3.53 10^6/uL (4.20-5.40); RED CELL DISTRIBUTION WIDTH 12.5 % (12.0-15.0); WHITE BLOOD COUNT 8.6 x10^3/uL (4.8-10.8)
[2024-06-29 14:51] LABS: THYROID STIMULATING HORMONE 1.19 uIU/mL (0.34-5.60)
[2024-06-29 23:26] LABS: ESTIMATED AVERAGE GLUCOSE 157 mg/dL (70-100); HEMOGLOBIN A1c% 7.1 % (4.27-6.07)
== END 2024-06-29 10:45 | disposition home or self-care (01) ==
LOC: LAB.N 10:44
PROVIDERS: ATTEND Nurse Practitioner
DX: I10 Essential (primary) hypertension (principal); E78.5 Hyperlipidemia, unspecified; E11.65 Type 2 diabetes mellitus with hyperglycemia; E11.42 Type 2 diabetes mellitus with diabetic polyneuropathy; F41.9 Anxiety disorder, unspecified; F32.A Depression, unspecified
CPT/HCPCS: 36415; 80053; 80061; 82043; 82570; 82607; 83036; 83721; 84443; 85025

== ENCOUNTER 2024-07-01 08:00 | Outpatient (CLI) | payer MEDICARE ==
[2024-07-01 18:28] LABS: BILIRUBIN,URINE NEGATIVE (NEGATIVE); GLUCOSE, URINE (UA) NEGATIVE (NEGATIVE); KETONES,URINE (UA) NEGATIVE (NEGATIVE); LEUKOCYTE ESTERASE, URINE NEGATIVE (NEGATIVE); NITRITE,URINE NEGATIVE (NEGATIVE); OCCULT BLOOD,URINE NEGATIVE (NEGATIVE); PROTEIN,URINE NEGATIVE (NEGATIVE); UROBILINOGEN,URINE 0.2 (NORMAL) E.U./dL (NORMAL)
[2024-07-01 18:29] LABS: CLARITY,URINE CLEAR (CLEAR)
[2024-07-01 18:49] LABS: BACTERIA,URINE None Seen /HPF (None Seen); RBC,URINE None Seen /HPF (0-5); SQUAMOUS EPITHELIAL CELL,UR RARE Squamous (<= Few); WBC,URINE 0-3 /HPF (0-5)
[2024-07-01 20:17] LABS: FECAL OCCULT BLOOD (FIT) NEGATIVE (NEGATIVE)
== END 2024-07-01 23:59 | disposition home or self-care (01) ==
LOC: LAB.N 08:00
PROVIDERS: ATTEND Nurse Practitioner
DX: D64.9 Anemia, unspecified (principal)
CPT/HCPCS: 81001; 82274